=== PATIENT | male | born 1980 | race Caucasian/White ===

== ENCOUNTER 2017-10-30 11:12 | Emergency (ER) | payer OTHER, SELFPAY ==
[2017-10-30 12:07] VITALS: BP 115/66; PULSE 75
[2017-10-30 12:12] VITALS: O2SAT 97
[2017-10-30] MEDS ORDERED: TORAdol 30 mg Injection IM ONE (12:12)
--- NOTE | 2017-10-30 12:12 | ERPHSYRPT ---
- History of Present Illness Time Seen by Provider: 10/30/17 12:06 Source: patient Exam Limitations: no limitations Patient Subjective Stated Complaint: RIGHT FOOT PAIN SINCE LAST NIGHT. DENIES ANY INJURY Triage Nursing Assessment: RIGHT FOOT WARM TO TOUCH, NORMAL COLOR. GOOD PEDAL PULSE. GOOD CAP REFILL Physician History: The patient is a 37-year-old morbidly obese male complaining of right ankle pain after he came home from work last night. He has not taken any Tylenol or ibuprofen. He has not iced it. He denies any injury. He denies numbness or tingling. He denies swelling. His past medical history is significant only for morbid obesity. Method of Injury: unknown Occurred: yesterday Quality: constant, aching Severity of Pain-Max: mild Severity of Pain-Current: mild Lower Extremities Pain: ankle: right Modifying Factors: Improves With: nothing Associated Symptoms: none Allergies/Adverse Reactions: bee venom protein (honey bee) Allergy (Verified 10/30/17 11:36) Penicillins Allergy (Verified 10/30/17 11:36) Home Medications: No Reportable Medications [No Reported Medications] 10/30/17 [History] Hx Tetanus, Diphtheria Vaccination/Date Given: Yes Hx Influenza Vaccination/Date Given: Yes Hx Pneumococcal Vaccination/Date Given: Yes - Review of Systems Constitutional: No Fever, No Chills Eyes: No Symptoms Ears, Nose, & Throat: No Symptoms Respiratory: No Cough, No Dyspnea Cardiac: No Chest Pain, No Edema, No Syncope Abdominal/Gastrointestinal: No Abdominal Pain, No Nausea, No Vomiting, No Diarrhea Genitourinary Symptoms: No Dysuria Musculoskeletal: Joint Pain Skin: No Rash Neurological: No Dizziness, No Focal Weakness, No Sensory Changes Psychological: No Symptoms Endocrine: No Symptoms Hematologic/Lymphatic: No Symptoms Immunological/Allergic: No Symptoms All Other Systems: Reviewed and Negative - Past Medical History Pertinent Past Medical History: Yes Other Medical History: OBESITY - Past Surgical History Past Surgical History: No - Social History Smoking Status: Never smoker Exposure to second hand smoke: No Drug Use: none Patient Lives Alone: No - Nursing Vital Signs Nursing Vital Signs: Initial Vital Signs Temperature 98.4 F 10/30/17 11:26 Pulse Rate 76 10/30/17 11:26 Respiratory Rate 18 10/30/17 11:26 Blood Pressure 145/82 10/30/17 11:26 O2 Sat by Pulse Oximetry 97 10/30/17 11:26 Pain Scale Pain Intensity 8 - Physical Exam General Appearance: alert Eyes, Ears, Nose, Throat Exam: moist mucous membranes Neck Exam: non-tender, supple Cardiovascular/Respiratory Exam: chest non-tender, normal breath sounds, regular rate/rhythm, no respiratory distress Gastrointestinal/Abdominal Exam: non-tender, guarding Back Exam: normal inspection, No vertebral tenderness Hips Exam: bilateral: non-tender Legs Exam: bilateral leg: non-tender Knees Exam: bilateral knee: non-tender Ankle Exam: right ankle: soft tissue tenderness, left ankle: non-tender Foot Exam: bilateral foot: non-tender Neuro/Tendon Exam: normal sensation, normal motor functions Mental Status Exam: alert, oriented x 3, cooperative Skin Exam: normal color, warm, dry SpO2 Interpretation: normal SpO2: 97 Oxygen Delivery: Room Air - Radiology Exams Right Ankle X-ray Interpretation: Reviewed by me, Teleradiologist Report, Negative (per Dr Munoz) Ordered Tests: Active Orders 24 hr Category Date Time Status ANKLE (3 VIEWS) Stat Exams 10/30/17 12:13 Completed Medication Summary Discontinued Medications Generic Name Dose Route Start Last Admin Trade Name Braden PRN Reason Stop Dose Admin Ketorolac Tromethamine 60 mg 10/30/17 12:12 10/30/17 12:18 Toradol 30 Mg Injection IM 10/30/17 12:13 60 mg STAT ONE Administration Ketorolac Tromethamine Confirm 10/30/17 12:17 Toradol 30 Mg Injection Administered 10/30/17 12:18 Dose 60 mg .ROUTE .STK-MED ONE - Progress Progress: improved Counseled pt/family regarding: rad results - Departure Time of Disposition: 12:53 Departure Disposition: Home Clinical Impression: Right ankle pain Condition: Stable Critical Care Time: No Referrals: FERMÍN HENDRIX MD [Primary Care Provider] - Additional Instructions: You have right ankle pain. No broken bones were seen on the x-ray. You were given Toradol 60 mg IM in the ER. Take Tylenol 1000 mg and ibuprofen 800 mg every 8 hours as needed for pain. Follow-up next week if the condition persists.
[2017-10-30] MEDS ORDERED: TORAdol 30 mg Injection ONE (12:17)
--- NOTE | 2017-10-30 12:45 | XRAY ---
Exam: 3 view right ankle series from 10/30/2017. Comparison: None. Indication: No known injury, patient states he does a lot of walking, complains of pain along medial and lateral sides of right ankle, no history of prior fractures or surgery. Findings: AP, internal oblique, and lateral radiographs are submitted for evaluation. I see no acute fracture of either the distal right fibula or tibia. No anterior right ankle joint effusion is seen. There is some soft tissue prominence about the right ankle which might be due to the patient's body habitus. Correlate clinically. The right ankle mortise is well-preserved and appears uniform. No abnormal periarticular soft tissue calcifications are seen. A prominent os trigonum is seen posterior to the talus. There is a mild plantar right calcaneal spur present. The remainder of the right hindfoot appears unremarkable. The base of the right fifth metatarsal appears grossly intact. Impression: 1. No acute fracture or dislocation of the right ankle is seen. 2. The right ankle mortise is well-preserved and reveals smooth articular margins. It appears uniform. 3. There is some soft tissue prominence about both sides of the ankle. This might be due to the patient's body habitus. Correlate clinically.
== END 2017-10-30 13:07 | disposition home or self-care (01) ==
LOC: ED 11:12
DX: M25.571 Pain in right ankle and joints of right foot (principal)
CPT/HCPCS: 73610; 96372; 99284; J1885

== ENCOUNTER 2020-03-09 18:29 | Observation (INO) | payer OTHER ==
[2020-03-09] MEDS ORDERED: TYLENOL EXTRA STRENGTH 500 MG PO STA (18:36)
[2020-03-09] MEDS ORDERED: TYLENOL EXTRA STRENGTH 500 MG ONE (18:59)
[2020-03-09] MEDS ORDERED: Lactated Ringers 1,000 ML IV ONE (19:00)
[2020-03-09] MEDS ORDERED: Lactated Ringers 1,000 ML IV SCH (19:00)
[2020-03-09 19:18] LABS: Hematocrit 45.4 % (42-50); Hemoglobin 15.1 gm/dl (12.5-18.0); Mean Cell Volume 89.5 fl (78-100); Mean Corpuscular Hemoglobin 29.8 pg (26-32); Mean Corpuscular Hgb Concent. 33.3 g/dl (32-36); Mean Platelet Volume 10.7 fl (7.5-11.0); Platelet Count 231 K/mm3 (150-450); Red Blood Count 5.07 M/mm3 (4.1-5.6)
[2020-03-09 19:31] LABS: ALBUMIN 4.5 g/dL (3.5-5.0); ALKALINE PHOSPHATASE 69 U/L (38-126); ANION GAP 13.4 MEQ/L (5-15); BLOOD UREA NITROGEN 16 mg/dL (9-20); CHLORIDE 103 mmol/L (98-107); Calcium 9.4 mg/dL (8.4-10.2); Carbon Dioxide 25 mmol/L (22-30); Creatinine 1 0.92 mg/dL (0.66-1.25); Glucose 110 mg/dL (74-106); LDH-LACTATE DEHYDROGENASE 231 U/L (120-246); Potassium 3.9 mmol/L (3.5-5.1); SGOT/AST 27 U/L (17-59); SGPT/ALT 33 U/L (0-50); SODIUM 138 mmol/L (137-145); Total Protein 8.4 g/dL (6.3-8.2)
[2020-03-09 19:38] LABS: White Blood Count 28.9 K/mm3 (4.0-10.5)
[2020-03-09 19:53] LABS: INFLUENZA A NEGATIVE (NEGATIVE); INFLUENZA B NEGATIVE (NEGATIVE); RESPIRATORY SYNCTIAL VIRUS NEGATIVE (Negative)
--- NOTE | 2020-03-09 20:02 | ERPHSYRPT ---
- History of Present Illness Time Seen by Provider: 03/09/20 18:40 Source: patient Exam Limitations: no limitations Patient Subjective Stated Complaint: pt reports shortness of breath, fever, sweating, weakness and cough all starting suddenly this afternoon. 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 pt also reports lower extremity pain. pt states he has improving cellulitis to the bilat lower extremities. Triage Nursing Assessment: pt is aox3, pupils perrl, afebrile, pt is short of breath with minimal exertion, pt noted to be extremely diaphoretic, pt resps are unlabored, pt with decreased lung sounds, more so to the lower left lobe posteriorly. pt radial pulses strong and equal, pt tachycardic, cap refill < 3 s econds. pt noted to have mild swelling to bilat lower extremities with some redness as well. Physician History: Patient is a-year-old male who presents to our ED for evaluation of cough shortness of breath and fever. Patient states he has been sweating beyond what is expected for warm weather. 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 Patient states he has been feeling weak overall. No focal or lateralizing symptoms. Symptoms started today. Symptoms have been constant. No specific worsening or improving factors. No associated chest pain. No nausea or vomiting. Fevers are subjective. Patient also reports redness and swelling to both lower extremities. Otherwise healthy. He voices no other complaints at this time. Allergies/Adverse Reactions: bee venom protein (honey bee) Allergy (Verified 03/09/20 19:10) Swelling Penicillins Allergy (Verified 03/09/20 19:10) Hives Home Medications: No Reportable Medications [No Reported Medications] 10/30/17 [History] Hx Tetanus, Diphtheria Vaccination/Date Given: No Hx Influenza Vaccination/Date Given: Yes Hx Pneumococcal Vaccination/Date Given: No Immunizations Up to Date: Yes Travel Risk - International Travel Have you traveled outside of the country in past 3 weeks: No - Coronavirus Screening Close contact with a COVID-19 positive Pt in past 14-21 Days: No - Review of Systems Constitutional: No Symptoms, No Fever, No Chills Eyes: No Symptoms Ears, Nose, & Throat: No Symptoms Respiratory: No Symptoms, No Cough, No Dyspnea Cardiac: No Symptoms, No Chest Pain, No Edema, No Syncope Abdominal/Gastrointestinal: No Symptoms, No Abdominal Pain, No Nausea, No Vomiting, No Diarrhea Genitourinary Symptoms: No Symptoms, No Dysuria Musculoskeletal: No Symptoms, No Back Pain, No Neck Pain Skin: No Symptoms, No Rash Neurological: No Symptoms, No Dizziness, No Focal Weakness, No Sensory Changes Psychological: No Symptoms Endocrine: No Symptoms Hematologic/Lymphatic: No Symptoms Immunological/Allergic: No Symptoms All Other Systems: Reviewed and Negative - Past Medical History Pertinent Past Medical History: Yes Other Medical History: OBESITY. Cellulitis-BLE - Past Surgical History Past Surgical History: No - Social History Smoking Status: Never smoker Exposure to second hand smoke: No Drug Use: none Patient Lives Alone: No - Nursing Vital Signs Nursing Vital Signs: Initial Vital Signs Temperature 99.8 F 03/09/20 18:33 Pulse Rate 113 H 03/09/20 18:33 Respiratory Rate 24 03/09/20 18:33 Blood Pressure 135/72 03/09/20 18:33 O2 Sat by Pulse Oximetry 97 03/09/20 18:33 Pain Scale Pain Intensity 3 - Physical Exam General Appearance: mild distress, alert, other (Patient sitting up in bed. He is conversant. He appears mildly short of breath. He is diaphoretic. Patient is tachycardic.) Eye Exam: PERRL/EOMI ENT Exam: normal ENT inspection, No pharyngeal erythema, No tonsillar exudate Neck Exam: supple, full range of motion, No meningismus Respiratory Exam: lungs clear (Mildly increased respiratory rate. Diminished breath sounds bilaterally. No acute respiratory distress.), decreased air movement (Diminished breath sounds bilaterally somewhat more decreased at the left lower base.) Cardiovascular/Chest Exam: normal heart sounds, regular rate/rhythm, No murmur, No edema Gastrointestinal/Abdominal Exam: soft, non tender, no distention Extremity Exam: non-tender, normal range of motion, normal inspection, normal capillary refill, swelling (Cellulitis right lower extremity.) Neurologic Exam: alert, oriented x 3, cooperative, creative/art director II-XII nml as tested, normal mood/affect, sensation nml, No motor deficits Skin Exam: normal color, warm, dry, No rash SpO2 Interpretation: normal SpO2: 94 O2 Delivery: Room Air - Course Nursing assessment & vital signs reviewed: Yes EKG Interpreted by Me: RATE ([id number]), Sinus Tach, NORMAL AXIS, NORMAL INTERVALS - Radiology Ultrasound Exam Venous Lower Extremity Ultrasound: discussed w/radiologist (Per pipe supervisor no DVT right lower extremity.) Ordered Tests: Active Orders 24 hr Category Date Time Status Up With Assistance ROUTINE Activity 03/09/20 22:51 Active Code Status Order ROUTINE Care 03/09/20 22:51 Active EKG-ER Only STAT Care 03/09/20 18:36 Completed IV Care Q6H Care 03/09/20 22:51 Active IV Insertion STAT Care 03/09/20 18:36 Completed Isolation, Initiate & Maintain STAT Care 03/09/20 18:[address] in Observation ROUTINE Care 03/09/20 22:51 Active Vital Signs Q4H Care 03/09/20 22:51 Active Heart-Healthy Diet Diet 03/09/20 Breakfast Active CHEST 1 VIEW (PORTABLE) Stat Exams 03/09/20 18:37 Taken VENOUS UNILAT/LIMITED EXTREMIT [US] Stat Exams 03/09/20 21:11 Taken BLOOD CULTURE Stat Lab 03/09/20 18:50 Received CBC Stat Lab 03/09/20 18:50 Results CBC W DIFF AM.LAB Lab 03/10/20 04:00 Ordered CMP AM.LAB Lab 03/10/20 04:00 Ordered CMP Stat Lab 03/09/20 18:50 Completed LDH-LACTATE DEHYDROGENASE Stat Lab 03/09/20 18:50 Completed Lactic Acid Stat Lab 03/09/20 19:01 Completed Pathologist Review Stat Lab 03/09/20 18:50 Results TROPONIN Q3H Lab 03/09/20 18:45 Completed TROPONIN Q3H Lab 03/09/20 22:15 Completed TROPONIN Q3H Lab 03/10/20 00:45 Ordered TROPONIN Q3H Lab 03/10/20 03:45 Ordered TROPONIN Q3H Lab 03/10/20 06:45 Ordered UA W/RFX UR CULTURE Stat Lab 03/09/20 19:50 Completed Pulse Oximetry CONTINUOUS RT 03/09/20 22:51 Completed Transfer Order Routine Transfer 03/09/20 Completed Medication Summary Generic Name Dose Route Start Last Admin Trade Name Freq PRN Reason Stop Dose Admin Morphine Sulfate 2 mg 03/09/20 22:51 Morphine Sulfate 2 Mg Inj IV 03/14/20 22:50 Q4H PRN PRN PAIN Discontinued Medications Generic Name Dose Route Start Last Admin Trade Name Braden PRN Reason Stop Dose Admin Acetaminophen 1,000 mg 03/09/20 18:36 03/09/20 19:06 Tylenol Extra Strength 500 Mg PO 03/09/20 18:37 1,000 mg STAT STA Administration Acetaminophen Confirm 03/09/20 18:59 Tylenol Extra Strength 500 Mg Administered 03/09/20 19:00 Dose 1,000 mg .ROUTE .STK-MED ONE Lactated Ringer's 1,000 mls @ 50 mls/hr 03/09/20 19:00 03/09/20 19:06 Lactated Ringers IV 04/08/20 18:59 50 mls/hr .Q20H MONICA Administration Clindamycin HCl/Dextrose 900 mg in 50 mls @ 100 mls/hr 03/09/20 20:37 03/09/20 21:43 Clindamycin-D5w 900 Mg/50 Ml IV 03/09/20 21:06 Infused STAT STA Infusion Clindamycin HCl/Dextrose Confirm 03/09/20 21:01 Clindamycin-D5w 900 Mg/50 Ml Administered 03/09/20 21:02 Dose 900 mg in 50 mls @ ud IV .STK-MED ONE Vancomycin HCl Confirm 03/09/20 21:02 Vancomycin 1 Gram/200 Ml Bag Administered 03/09/20 21:03 Dose 1 gm in 200 mls @ ud IV .STK-MED ONE Vancomycin HCl 1 gm in 200 mls @ 125 mls/hr 03/09/20 21:09 03/09/20 21:36 Vancomycin 1 Gram/200 Ml Bag IV 03/09/20 22:44 125 mls/hr STAT ONE 125 mls/hr Administration Lactated Ringer's Confirm 03/09/20 19:00 Lactated Ringers Administered 03/09/20 19:01 Dose 1,000 mls @ ud IV .STK-MED ONE Lab/Rad Data: Laboratory Result Diagrams 03/09/20 18:50 03/09/20 18:50 Laboratory Results 03/09/20 03/09/20 03/09/20 Range/Units 22:15 19:50 19:01 WBC (4.0-10.5) K/mm3 RBC (4.1-5.6) M/mm3 Hgb (12.5-18.0) gm/dl Hct (42-50) % MCV (78-100) fl MCH (26-32) pg MCHC (32-36) g/dl RDW (11.5-14.0) % Plt Count (150-450) K/mm3 MPV (7.5-11.0) fl Smear Path Review Sodium (137-145) mmol/L Potassium (3.5-5.1) mmol/L Chloride (98-107) mmol/L Carbon Dioxide (22-30) mmol/L Anion Gap (5-15) MEQ/L BUN (9-20) mg/dL Creatinine (0.66-1.25) mg/dL Estimated GFR ML/MIN Glucose (74-106) mg/dL Lactic Acid 1.2 (0.4-2.0) Calcium (8.4-10.2) mg/dL Total Bilirubin (0.2-1.3) mg/dL AST (17-59) U/L ALT (0-50) U/L Alkaline Phosphatase (38-126) U/L Lactate Dehydrogenase (120-246) U/L Troponin I < 0.012 (0.000-0.034) ng/mL Serum Total Protein (6.3-8.2) g/dL Albumin (3.5-5.0) g/dL Urine Color MARIELLA (YELLOW) Urine Appearance SLIGHTLY CLOUDY (CLEAR) Urine pH 6.0 (5-6) Ur Specific [place] 1.030 (1.005-1.025) Urine Protein NEGATIVE (Negative) Urine Ketones NEGATIVE (NEGATIVE) Urine Blood MODERATE (0-5) Patrick/ul Urine Nitrite NEGATIVE (NEGATIVE) Urine Bilirubin NEGATIVE (NEGATIVE) Urine Urobilinogen 2 (0-1) mg/dL Ur Leukocyte Esterase NEGATIVE (NEGATIVE) Urine WBC (Auto) 0-2 (0-5) /HPF Urine RBC (Auto) 11-15 (0-2) /HPF U Epithel Cells (Auto) NONE (FEW) /HPF Urine Bacteria (Auto) FEW (NEGATIVE) /HPF Urine Mucus (Auto) SLIGHT (NEGATIVE) /HPF Urine Culture Reflexed NO (NO) Urine Glucose NEGATIVE (NEGATIVE) mg/dL Influenza Type A Ag (NEGATIVE) Influenza Type B Ag (NEGATIVE) RSV (PCR) (Negative) SARS-CoV-2 (PCR) (NEGATIVE) 03/09/20 03/09/20 03/09/20 Range/Units 19:00 18:50 18:50 WBC (4.0-10.5) K/mm3 RBC (4.1-5.6) M/mm3 Hgb (12.5-18.0) gm/dl Hct (42-50) % MCV (78-100) fl MCH (26-32) pg MCHC (32-36) g/dl RDW (11.5-14.0) % Plt Count (150-450) K/mm3 MPV (7.5-11.0) fl Smear Path Review Sodium 138 (137-145) mmol/L Potassium 3.9 (3.5-5.1) mmol/L Chloride 103 (98-107) mmol/L Carbon Dioxide 25 (22-30) mmol/L Anion Gap 13.4 (5-15) MEQ/L BUN 16 (9-20) mg/dL Creatinine 0.92 (0.66-1.25) mg/dL Estimated GFR > 60.0 ML/MIN Glucose 110 H (74-106) mg/dL Lactic Acid (0.4-2.0) Calcium 9.4 (8.4-10.2) mg/dL Total Bilirubin 1.80 H (0.2-1.3) mg/dL AST 27 (17-59) U/L ALT 33 (0-50) U/L Alkaline Phosphatase 69 (38-126) U/L Lactate Dehydrogenase 231 (120-246) U/L Troponin I (0.000-0.034) ng/mL Serum Total Protein 8.4 H (6.3-8.2) g/dL Albumin 4.5 (3.5-5.0) g/dL Urine Color (YELLOW) Urine Appearance (CLEAR) Urine pH (5-6) Ur Specific [place] (1.005-1.025) Urine Protein (Negative) Urine Ketones (NEGATIVE) Urine Blood (0-5) Patrick/ul Urine Nitrite (NEGATIVE) Urine Bilirubin (NEGATIVE) Urine Urobilinogen (0-1) mg/dL Ur Leukocyte Esterase (NEGATIVE) Urine WBC (Auto) (0-5) /HPF Urine RBC (Auto) (0-2) /HPF U Epithel Cells (Auto) (FEW) /HPF Urine Bacteria (Auto) (NEGATIVE) /HPF Urine Mucus (Auto) (NEGATIVE) /HPF Urine Culture Reflexed (NO) Urine Glucose (NEGATIVE) mg/dL Influenza Type A Ag NEGATIVE (NEGATIVE) Influenza Type B Ag NEGATIVE (NEGATIVE) RSV (PCR) NEGATIVE (Negative) SARS-CoV-2 (PCR) NEGATIVE (NEGATIVE) 03/09/20 03/09/20 Range/Units 18:50 18:45 WBC 28.9 H* (4.0-10.5) K/mm3 RBC 5.07 (4.1-5.6) M/mm3 Hgb 15.1 (12.5-18.0) gm/dl Hct 45.4 (42-50) % MCV 89.5 (78-100) fl MCH 29.8 (26-32) pg MCHC 33.3 (32-36) g/dl RDW 13.0 (11.5-14.0) % Plt Count 231 (150-450) K/mm3 MPV 10.7 (7.5-11.0) fl Smear Path Review Pending Sodium (137-145) mmol/L Potassium (3.5-5.1) mmol/L Chloride (98-107) mmol/L Carbon Dioxide (22-30) mmol/L Anion Gap (5-15) MEQ/L BUN (9-20) mg/dL Creatinine (0.66-1.25) mg/dL Estimated GFR ML/MIN Glucose (74-106) mg/dL Lactic Acid (0.4-2.0) Calcium (8.4-10.2) mg/dL Total Bilirubin (0.2-1.3) mg/dL AST (17-59) U/L ALT (0-50) U/L Alkaline Phosphatase (38-126) U/L Lactate Dehydrogenase (120-246) U/L Troponin I < 0.012 (0.000-0.034) ng/mL Serum Total Protein (6.3-8.2) g/dL Albumin (3.5-5.0) g/dL Urine Color (YELLOW) Urine Appearance (CLEAR) Urine pH (5-6) Ur Specific [place] (1.005-1.025) Urine Protein (Negative) Urine Ketones (NEGATIVE) Urine Blood (0-5) Patrick/ul Urine Nitrite (NEGATIVE) Urine Bilirubin (NEGATIVE) Urine Urobilinogen (0-1) mg/dL Ur Leukocyte Esterase (NEGATIVE) Urine WBC (Auto) (0-5) /HPF Urine RBC (Auto) (0-2) /HPF U Epithel Cells (Auto) (FEW) /HPF Urine Bacteria (Auto) (NEGATIVE) /HPF Urine Mucus (Auto) (NEGATIVE) /HPF Urine Culture Reflexed (NO) Urine Glucose (NEGATIVE) mg/dL Influenza Type A Ag (NEGATIVE) Influenza Type B Ag (NEGATIVE) RSV (PCR) (Negative) SARS-CoV-2 (PCR) (NEGATIVE) - Progress Progress: improved Progress Note: 03/09/20 23:20 Patient reassessed. He feels better. COVID negative. Leukocytosis likely secondary to right lower extremity cellulitis. venous duplex lower extremity ultrasound negative for DVT of right lower extremity. Antibiotics infused. Case discussed with Dr. Grayson who accepts admission to observation. Plan of care discussed with patient. He agrees admission to [facility] for further evaluation and treatment. Present for in stable condition. Discussed with Dr.: Luiza Will see patient in: hospital (observation) Counseled pt/family regarding: lab results, diagnosis, need for follow-up, rad results - Departure Departure Disposition: Release to OR/SDC Clinical Impression: Leukocytosis, Elevated bilirubin, Hematuria, Serum total bilirubin elevated, Cellulitis Condition: Stable Critical Care Time: Yes Critical Care Time(excluding separately billable procedures): Critical 75-104 mins
[2020-03-09 20:07] LABS: Appearance SLIGHTLY CLOUDY (CLEAR); Bacteria FEW /HPF (NEGATIVE); Bilirubin NEGATIVE (NEGATIVE); Blood MODERATE Ery/ul (0-5); Glucose NEGATIVE (NEGATIVE); Ketones NEGATIVE (NEGATIVE); Leukocyte Esterase NEGATIVE (NEGATIVE); Mucus SLIGHT /HPF (NEGATIVE); Nitrite NEGATIVE (NEGATIVE); Protein,Urine Dip NEGATIVE (Negative); Urobilinogen 2 mg/dL (0-1); WBC 0-2 /HPF (0-5)
[2020-03-09] MEDS ORDERED: CLINDAMYCIN-D5W 900 MG/50 ML*** 900 MG/50 ML BAG IV STA (20:37)
[2020-03-09] MEDS ORDERED: CLINDAMYCIN-D5W 900 MG/50 ML*** 900 MG/50 ML BAG IV ONE (21:01)
[2020-03-09] MEDS ORDERED: VANCOMYCIN 1 GRAM/200 ML BAG 1 GM/200 ML PIGGYBACK IV ONE ×2 (21:02→21:09)
[2020-03-09] MEDS ORDERED: MORPHINE SULFATE 2 MG INJ IV PRN (22:51)
[2020-03-10 05:17] LABS: Absolute Neutrophil Ct (ANC) 19.73 (1.4-6.9); BASOPHIL % 0.1 % (0.0-0.4); Basophil (Absolute #) 0.02 (0-0.4); Eosinophil (Absolute #) 0.01 (0-0.5); Hematocrit 42.4 % (42-50); Hemoglobin 13.9 gm/dl (12.5-18.0); Lymphocyte (Absolute #) 1.09 (1.0-4.6); Lymphocytes % 4.9 % (24.0-44.0); Mean Cell Volume 90.8 fl (78-100); Mean Corpuscular Hemoglobin 29.8 pg (26-32); Mean Corpuscular Hgb Concent. 32.8 g/dl (32-36); Mean Platelet Volume 10.6 fl (7.5-11.0); Monocytes % 5.4 % (0.0-12.0); Neutrophil % 89.6 % (36.0-66.0); Platelet Count 205 K/mm3 (150-450); Red Blood Count 4.67 M/mm3 (4.1-5.6); White Blood Count 22.1 K/mm3 (4.0-10.5)
[2020-03-10 05:40] LABS: ALBUMIN 3.6 g/dL (3.5-5.0); ALKALINE PHOSPHATASE 51 U/L (38-126); ANION GAP 9.8 MEQ/L (5-15); BLOOD UREA NITROGEN 15 mg/dL (9-20); CHLORIDE 103 mmol/L (98-107); Calcium 8.6 mg/dL (8.4-10.2); Carbon Dioxide 29 mmol/L (22-30); Creatinine 1 0.87 mg/dL (0.66-1.25); Glucose 105 mg/dL (74-106); Potassium 4.2 mmol/L (3.5-5.1); SGOT/AST 23 U/L (17-59); SGPT/ALT 30 U/L (0-50); SODIUM 138 mmol/L (137-145)
--- NOTE | 2020-03-10 08:06 | PCM.HP ---
History of Present Illness - Chief Complaint Chief Complaint: CELLULITIS, LEUKOCYTOSIS History of Present Illness: Mr.HART SIMONS is a 40 year old male who arrived with complaints of fever, chills and some dry cough, he was concerned he might have covid. he has had redness and pain in the right lower leg with some worsening in the last few days. no vomiting, no diarrhea, no other areas of pain. - Review of Systems Constitutional: Fever, Chills Respiratory: Cough, No Short Of Breath Cardiac: No Symptoms Abdominal/Gastrointestinal: No Abdominal Pain, No Nausea, No Vomiting, No Di arrhea Skin: Cellulitis All Other Systems: Reviewed and Negative Medications & Allergies Home Medications: Home Medication List No Reportable Medications [No Reported Medications] 10/30/17 [History Confirmed 03/09/20] Allergies/Adverse Reactions: Allergies Allergy/AdvReac Type Severity Reaction Status Date / Time bee venom protein (honey bee) Allergy Swelling Verified 03/09/20 19:10 Penicillins Allergy Hives Verified 03/09/20 19:10 - Past Medical History Past Medical History: Yes Comment: OBESITY. Cellulitis-BLE - Past Surgical History Past Surgical History: No - Social History Smoking Status: Never smoker Exposure to second hand smoke: No Alcohol: None Drug Use: none - Physical Exam Vital Signs: Vital Signs - 24 hr Temp Pulse Resp BP Pulse Ox 03/10/20 07:23 99.4 F 104 H 18 138/61 94 L 03/10/20 04:10 98.6 F 92 H 24 117/55 95 03/09/20 23:21 94 L 03/09/20 23:21 98.3 F 87 20 130/70 96 03/09/20 23:05 96 03/09/20 22:21 97 H 20 105/72 94 L 03/09/20 21:45 87 20 130/68 94 L 03/09/20 20:13 103 H 95/70 92 L 03/09/20 19:29 105 H 22 118/70 94 L 03/09/20 18:33 99.8 F 113 H 24 135/72 97 General Appearance: obese Neurologic Exam: alert, oriented x 3 Respiratory Exam: normal breath sounds, lungs clear, No respiratory distress Cardiovascular Exam: regular rate/rhythm, normal heart sounds, normal peripheral pulses Gastrointestinal/Abdomen Exam: soft, normal bowel sounds, No tenderness, No mass Skin Exam: other (erythema, warmth and swelling of right lower leg from foot to knee) Results - Labs Lab/Micro Results: Lab Results-Last 24 Hours 03/09/20 03/09/20 03/09/20 Range/Units 18:45 18:50 18:50 WBC 28.9 H* (4.0-10.5) K/mm3 RBC 5.07 (4.1-5.6) M/mm3 Hgb 15.1 (12.5-18.0) gm/dl Hct 45.4 (42-50) % MCV 89.5 (78-100) fl MCH 29.8 (26-32) pg MCHC 33.3 (32-36) g/dl RDW 13.0 (11.5-14.0) % Plt Count 231 (150-450) K/mm3 MPV 10.7 (7.5-11.0) fl Gran % (36.0-66.0) % Eos # (Auto) (0-0.5) Absolute Lymphs (auto) (1.0-4.6) Absolute Monos (auto) (0.0-1.3) Lymphocytes % (24.0-44.0) % Monocytes % (0.0-12.0) % Eosinophils % (0.00-5.0) % Basophils % (0.0-0.4) % Absolute Granulocytes (1.4-6.9) Basophils # (0-0.4) Smear Path Review Pending Sodium 138 (137-145) mmol/L Potassium 3.9 (3.5-5.1) mmol/L Chloride 103 (98-107) mmol/L Carbon Dioxide 25 (22-30) mmol/L Anion Gap 13.4 (5-15) MEQ/L BUN 16 (9-20) mg/dL Creatinine 0.92 (0.66-1.25) mg/dL Estimated GFR > 60.0 ML/MIN Glucose 110 H (74-106) mg/dL Lactic Acid (0.4-2.0) Calcium 9.4 (8.4-10.2) mg/dL Total Bilirubin 1.80 H (0.2-1.3) mg/dL AST 27 (17-59) U/L ALT 33 (0-50) U/L Alkaline Phosphatase 69 (38-126) U/L Lactate Dehydrogenase 231 (120-246) U/L Troponin I < 0.012 (0.000-0.034) ng/mL Serum Total Protein 8.4 H (6.3-8.2) g/dL Albumin 4.5 (3.5-5.0) g/dL Urine Color (YELLOW) Urine Appearance (CLEAR) Urine pH (5-6) Ur Specific [place] (1.005-1.025) Urine Protein (Negative) Urine Ketones (NEGATIVE) Urine Blood (0-5) Patrick/ul Urine Nitrite (NEGATIVE) Urine Bilirubin (NEGATIVE) Urine Urobilinogen (0-1) mg/dL Ur Leukocyte Esterase (NEGATIVE) Urine WBC (Auto) (0-5) /HPF Urine RBC (Auto) (0-2) /HPF U Epithel Cells (Auto) (FEW) /HPF Urine Bacteria (Auto) (NEGATIVE) /HPF Urine Mucus (Auto) (NEGATIVE) /HPF Urine Culture Reflexed (NO) Urine Glucose (NEGATIVE) mg/dL Influenza Type A Ag (NEGATIVE) Influenza Type B Ag (NEGATIVE) RSV (PCR) (Negative) SARS-CoV-2 (PCR) (NEGATIVE) 03/09/20 03/09/20 03/09/20 Range/Units 18:50 19:00 19:01 WBC (4.0-10.5) K/mm3 RBC (4.1-5.6) M/mm3 Hgb (12.5-18.0) gm/dl Hct (42-50) % MCV (78-100) fl MCH (26-32) pg MCHC (32-36) g/dl RDW (11.5-14.0) % Plt Count (150-450) K/mm3 MPV (7.5-11.0) fl Gran % (36.0-66.0) % Eos # (Auto) (0-0.5) Absolute Lymphs (auto) (1.0-4.6) Absolute Monos (auto) (0.0-1.3) Lymphocytes % (24.0-44.0) % Monocytes % (0.0-12.0) % Eosinophils % (0.00-5.0) % Basophils % (0.0-0.4) % Absolute Granulocytes (1.4-6.9) Basophils # (0-0.4) Smear Path Review Sodium (137-145) mmol/L Potassium (3.5-5.1) mmol/L Chloride (98-107) mmol/L Carbon Dioxide (22-30) mmol/L Anion Gap (5-15) MEQ/L BUN (9-20) mg/dL Creatinine (0.66-1.25) mg/dL Estimated GFR ML/MIN Glucose (74-106) mg/dL Lactic Acid 1.2 (0.4-2.0) Calcium (8.4-10.2) mg/dL Total Bilirubin (0.2-1.3) mg/dL AST (17-59) U/L ALT (0-50) U/L Alkaline Phosphatase (38-126) U/L Lactate Dehydrogenase (120-246) U/L Troponin I (0.000-0.034) ng/mL Serum Total Protein (6.3-8.2) g/dL Albumin (3.5-5.0) g/dL Urine Color (YELLOW) Urine Appearance (CLEAR) Urine pH (5-6) Ur Specific [place] (1.005-1.025) Urine Protein (Negative) Urine Ketones (NEGATIVE) Urine Blood (0-5) Patrick/ul Urine Nitrite (NEGATIVE) Urine Bilirubin (NEGATIVE) Urine Urobilinogen (0-1) mg/dL Ur Leukocyte Esterase (NEGATIVE) Urine WBC (Auto) (0-5) /HPF Urine RBC (Auto) (0-2) /HPF U Epithel Cells (Auto) (FEW) /HPF Urine Bacteria (Auto) (NEGATIVE) /HPF Urine Mucus (Auto) (NEGATIVE) /HPF Urine Culture Reflexed (NO) Urine Glucose (NEGATIVE) mg/dL Influenza Type A Ag NEGATIVE (NEGATIVE) Influenza Type B Ag NEGATIVE (NEGATIVE) RSV (PCR) NEGATIVE (Negative) SARS-CoV-2 (PCR) NEGATIVE (NEGATIVE) 03/09/20 03/09/20 03/10/20 Range/Units 19:50 22:15 00:45 WBC (4.0-10.5) K/mm3 RBC (4.1-5.6) M/mm3 Hgb (12.5-18.0) gm/dl Hct (42-50) % MCV (78-100) fl MCH (26-32) pg MCHC (32-36) g/dl RDW (11.5-14.0) % Plt Count (150-450) K/mm3 MPV (7.5-11.0) fl Gran % (36.0-66.0) % Eos # (Auto) (0-0.5) Absolute Lymphs (auto) (1.0-4.6) Absolute Monos (auto) (0.0-1.3) Lymphocytes % (24.0-44.0) % Monocytes % (0.0-12.0) % Eosinophils % (0.00-5.0) % Basophils % (0.0-0.4) % Absolute Granulocytes (1.4-6.9) Basophils # (0-0.4) Smear Path Review Sodium (137-145) mmol/L Potassium (3.5-5.1) mmol/L Chloride (98-107) mmol/L Carbon Dioxide (22-30) mmol/L Anion Gap (5-15) MEQ/L BUN (9-20) mg/dL Creatinine (0.66-1.25) mg/dL Estimated GFR ML/MIN Glucose (74-106) mg/dL Lactic Acid (0.4-2.0) Calcium (8.4-10.2) mg/dL Total Bilirubin (0.2-1.3) mg/dL AST (17-59) U/L ALT (0-50) U/L Alkaline Phosphatase (38-126) U/L Lactate Dehydrogenase (120-246) U/L Troponin I < 0.012 < 0.012 (0.000-0.034) ng/mL Serum Total Protein (6.3-8.2) g/dL Albumin (3.5-5.0) g/dL Urine Color MARIELLA (YELLOW) Urine Appearance SLIGHTLY CLOUDY (CLEAR) Urine pH 6.0 (5-6) Ur Specific [place] 1.030 (1.005-1.025) Urine Protein NEGATIVE (Negative) Urine Ketones NEGATIVE (NEGATIVE) Urine Blood MODERATE (0-5) Patrick/ul Urine Nitrite NEGATIVE (NEGATIVE) Urine Bilirubin NEGATIVE (NEGATIVE) Urine Urobilinogen 2 (0-1) mg/dL Ur Leukocyte Esterase NEGATIVE (NEGATIVE) Urine WBC (Auto) 0-2 (0-5) /HPF Urine RBC (Auto) 11-15 (0-2) /HPF U Epithel Cells (Auto) NONE (FEW) /HPF Urine Bacteria (Auto) FEW (NEGATIVE) /HPF Urine Mucus (Auto) SLIGHT (NEGATIVE) /HPF Urine Culture Reflexed NO (NO) Urine Glucose NEGATIVE (NEGATIVE) mg/dL Influenza Type A Ag (NEGATIVE) Influenza Type B Ag (NEGATIVE) RSV (PCR) (Negative) SARS-CoV-2 (PCR) (NEGATIVE) 03/10/20 03/10/20 03/10/20 Range/Units 04:45 04:45 04:45 WBC 22.1 H (4.0-10.5) K/mm3 RBC 4.67 (4.1-5.6) M/mm3 Hgb 13.9 (12.5-18.0) gm/dl Hct 42.4 (42-50) % MCV 90.8 (78-100) fl MCH 29.8 (26-32) pg MCHC 32.8 (32-36) g/dl RDW 13.0 (11.5-14.0) % Plt Count 205 (150-450) K/mm3 MPV 10.6 (7.5-11.0) fl Gran % 89.6 H (36.0-66.0) % Eos # (Auto) 0.01 (0-0.5) Absolute Lymphs (auto) 1.09 (1.0-4.6) Absolute Monos (auto) 1.20 (0.0-1.3) Lymphocytes % 4.9 L (24.0-44.0) % Monocytes % 5.4 (0.0-12.0) % Eosinophils % 0.0 (0.00-5.0) % Basophils % 0.1 (0.0-0.4) % Absolute Granulocytes 19.73 H (1.4-6.9) Basophils # 0.02 (0-0.4) Smear Path Review Sodium 138 (137-145) mmol/L Potassium 4.2 (3.5-5.1) mmol/L Chloride 103 (98-107) mmol/L Carbon Dioxide 29 (22-30) mmol/L Anion Gap 9.8 (5-15) MEQ/L BUN 15 (9-20) mg/dL Creatinine 0.87 (0.66-1.25) mg/dL Estimated GFR > 60.0 ML/MIN Glucose 105 (74-106) mg/dL Lactic Acid (0.4-2.0) Calcium 8.6 (8.4-10.2) mg/dL Total Bilirubin 1.50 H (0.2-1.3) mg/dL AST 23 (17-59) U/L ALT 30 (0-50) U/L Alkaline Phosphatase 51 (38-126) U/L Lactate Dehydrogenase (120-246) U/L Troponin I < 0.012 (0.000-0.034) ng/mL Serum Total Protein 7.0 (6.3-8.2) g/dL Albumin 3.6 (3.5-5.0) g/dL Urine Color (YELLOW) Urine Appearance (CLEAR) Urine pH (5-6) Ur Specific [place] (1.005-1.025) Urine Protein (Negative) Urine Ketones (NEGATIVE) Urine Blood (0-5) Patrick/ul Urine Nitrite (NEGATIVE) Urine Bilirubin (NEGATIVE) Urine Urobilinogen (0-1) mg/dL Ur Leukocyte Esterase (NEGATIVE) Urine WBC (Auto) (0-5) /HPF Urine RBC (Auto) (0-2) /HPF U Epithel Cells (Auto) (FEW) /HPF Urine Bacteria (Auto) (NEGATIVE) /HPF Urine Mucus (Auto) (NEGATIVE) /HPF Urine Culture Reflexed (NO) Urine Glucose (NEGATIVE) mg/dL Influenza Type A Ag (NEGATIVE) Influenza Type B Ag (NEGATIVE) RSV (PCR) (Negative) SARS-CoV-2 (PCR) (NEGATIVE) 03/10/20 Range/Units 06:40 WBC (4.0-10.5) K/mm3 RBC (4.1-5.6) M/mm3 Hgb (12.5-18.0) gm/dl Hct (42-50) % MCV (78-100) fl MCH (26-32) pg MCHC (32-36) g/dl RDW (11.5-14.0) % Plt Count (150-450) K/mm3 MPV (7.5-11.0) fl Gran % (36.0-66.0) % Eos # (Auto) (0-0.5) Absolute Lymphs (auto) (1.0-4.6) Absolute Monos (auto) (0.0-1.3) Lymphocytes % (24.0-44.0) % Monocytes % (0.0-12.0) % Eosinophils % (0.00-5.0) % Basophils % (0.0-0.4) % Absolute Granulocytes (1.4-6.9) Basophils # (0-0.4) Smear Path Review Sodium (137-145) mmol/L Potassium (3.5-5.1) mmol/L Chloride (98-107) mmol/L Carbon Dioxide (22-30) mmol/L Anion Gap (5-15) MEQ/L BUN (9-20) mg/dL Creatinine (0.66-1.25) mg/dL Estimated GFR ML/MIN Glucose (74-106) mg/dL Lactic Acid (0.4-2.0) Calcium (8.4-10.2) mg/dL Total Bilirubin (0.2-1.3) mg/dL AST (17-59) U/L ALT (0-50) U/L Alkaline Phosphatase (38-126) U/L Lactate Dehydrogenase (120-246) U/L Troponin I < 0.012 (0.000-0.034) ng/mL Serum Total Protein (6.3-8.2) g/dL Albumin (3.5-5.0) g/dL Urine Color (YELLOW) Urine Appearance (CLEAR) Urine pH (5-6) Ur Specific [place] (1.005-1.025) Urine Protein (Negative) Urine Ketones (NEGATIVE) Urine Blood (0-5) Patrick/ul Urine Nitrite (NEGATIVE) Urine Bilirubin (NEGATIVE) Urine Urobilinogen (0-1) mg/dL Ur Leukocyte Esterase (NEGATIVE) Urine WBC (Auto) (0-5) /HPF Urine RBC (Auto) (0-2) /HPF U Epithel Cells (Auto) (FEW) /HPF Urine Bacteria (Auto) (NEGATIVE) /HPF Urine Mucus (Auto) (NEGATIVE) /HPF Urine Culture Reflexed (NO) Urine Glucose (NEGATIVE) mg/dL Influenza Type A Ag (NEGATIVE) Influenza Type B Ag (NEGATIVE) RSV (PCR) (Negative) SARS-CoV-2 (PCR) (NEGATIVE) - Radiology Impressions Radiology Exams & Impressions: Radiology Procedures Category Date Time Status CHEST 1 VIEW (PORTABLE) Stat Exams 03/09/20 18:37 Taken VENOUS UNILAT/LIMITED EXTREMIT [US] Stat Exams 03/09/20 21:11 Taken Assessment/Plan (1) Morbid obesity Current Visit: Yes Status: Acute Code(s): E66.01 - MORBID (SEVERE) OBESITY DUE TO EXCESS CALORIES (2) Cellulitis Current Visit: Yes Status: Acute Code(s): L03.90 - CELLULITIS, UNSPECIFIED
[2020-03-10] MEDS ORDERED: VANCOCIN 1 GM VIAL*** 1 GM in Sodium Chloride 0.9% 250 ML 250 ML IV SCH (08:30)
--- NOTE | 2020-03-10 08:43 | XRAY ---
Indication: Fever, cough, and joint pain. Suspect Covid 19. Comparison: September 01, 2014. Portable chest again demonstrates normal heart, lungs, and bony thorax with incidental calcified granulomas.
--- NOTE | 2020-03-10 08:44 | XRAY ---
Indication: DVT. Two-dimensional sonogram and color Doppler imaging of the major venous vessels of the right leg was performed. Comparison: None No thrombus seen in the examined deep venous vessels of the right leg including greater saphenous vein. Veins demonstrate normal compressibility. Venous waveforms are normal with and without augmentation. Impression: Right leg negative for DVT. Comment: Preliminary report was given.
[2020-03-10] MEDS: NORCO 5/325 MG PO PRN ×2 (09:03→19:53)
[2020-03-10] MEDS: VANCOMYCIN 1.5 GRAM/300 ML BAG 1.5 GM/300 ML PIGGYBACK IV SCH ×2 (10:27→17:28)
[2020-03-10] MEDS: ENOXAPARIN SODIUM SQ SCH (10:27)
[2020-03-10] MEDS: BENADRYL 25 MG CAPSULE PO PRN (21:41)
[2020-03-11] MEDS: VANCOMYCIN 1.5 GRAM/300 ML BAG 1.5 GM/300 ML PIGGYBACK IV SCH ×3 (02:04→17:50)
[2020-03-11] MEDS: BENADRYL 25 MG CAPSULE PO PRN ×2 (03:58→09:26)
[2020-03-11 06:14] LABS: Absolute Neutrophil Ct (ANC) 7.83 (1.4-6.9); BASOPHIL % 0.1 % (0.0-0.4); Basophil (Absolute #) 0.01 (0-0.4); Eosinophil % 2.2 % (0.00-5.0); Eosinophil (Absolute #) 0.22 (0-0.5); Hematocrit 41.4 % (42-50); Hemoglobin 13.5 gm/dl (12.5-18.0); Lymphocyte (Absolute #) 1.28 (1.0-4.6); Mean Cell Volume 91.2 fl (78-100); Mean Corpuscular Hemoglobin 29.7 pg (26-32); Mean Corpuscular Hgb Concent. 32.6 g/dl (32-36); Mean Platelet Volume 10.7 fl (7.5-11.0); Monocyte (Absolute #) 0.47 (0.0-1.3); Monocytes % 4.8 % (0.0-12.0); Neutrophil % 79.9 % (36.0-66.0); Platelet Count 198 K/mm3 (150-450); Red Blood Count 4.54 M/mm3 (4.1-5.6); Red Cell Distribution Width 13.2 % (11.5-14.0); White Blood Count 9.8 K/mm3 (4.0-10.5)
[2020-03-11 06:47] LABS: ANION GAP 9.3 MEQ/L (5-15); BLOOD UREA NITROGEN 13 mg/dL (9-20); CHLORIDE 106 mmol/L (98-107); Calcium 8.1 mg/dL (8.4-10.2); Carbon Dioxide 25 mmol/L (22-30); Creatinine 1 0.78 mg/dL (0.66-1.25); Glucose 90 mg/dL (74-106); SODIUM 136 mmol/L (137-145)
[2020-03-11] MEDS: ENOXAPARIN SODIUM SQ SCH (09:21)
--- NOTE | 2020-03-11 12:19 | PCM.NOTE ---
Date and Time: 03/11/20 1213 Subjective Assessment: Pt is kleber po well. Leg not hurting unless he touches it or is up on it. Kleber po well. Leg feels better than at admission. - Review of Systems Constitutional: No Fever Skin: Cellulitis Objective Exam General Appearance: no apparent distress, obese Neurologic Exam: alert, oriented x 3 Skin Exam: other (RLE erythematous particularly anteriorly. There is some vesicular appearance to the anterior portion. Quite TTP. Trace pitting edema.) OBJECTIVE DATA Vital Signs: Vital Signs - 24 hr Temp Pulse Resp BP Pulse Ox 03/11/20 07:25 98.4 F 84 16 125/69 96 03/11/20 04:00 98.7 F 86 16 111/59 03/11/20 00:00 97.6 F 87 16 128/65 97 03/10/20 20:00 97.3 F 88 18 127/63 98 03/10/20 16:00 97.9 F 86 16 123/69 96 Pain Assessment - Last Documented Pain Intensity 2 Pain Scale Used [facility] Intake and Output: Intake & Output 03/09/20 03/10/20 03/11/20 03/12/20 11:59 11:59 11:59 11:59 Intake Total 938 2434 Output Total 800 1200 Balance 138 1234 Weight 163.3 kg Lab Results: Lab Results-Last 24 Hours 03/11/20 03/11/20 Range/Units 05:35 05:35 WBC 9.8 (4.0-10.5) K/mm3 RBC 4.54 (4.1-5.6) M/mm3 Hgb 13.5 (12.5-18.0) gm/dl Hct 41.4 L (42-50) % MCV 91.2 (78-100) fl MCH 29.7 (26-32) pg MCHC 32.6 (32-36) g/dl RDW 13.2 (11.5-14.0) % Plt Count 198 (150-450) K/mm3 MPV 10.7 (7.5-11.0) fl Gran % 79.9 H (36.0-66.0) % Eos # (Auto) 0.22 (0-0.5) Absolute Lymphs (auto) 1.28 (1.0-4.6) Absolute Monos (auto) 0.47 (0.0-1.3) Lymphocytes % 13.0 L (24.0-44.0) % Monocytes % 4.8 (0.0-12.0) % Eosinophils % 2.2 (0.00-5.0) % Basophils % 0.1 (0.0-0.4) % Absolute Granulocytes 7.83 H (1.4-6.9) Basophils # 0.01 (0-0.4) Sodium 136 L (137-145) mmol/L Potassium 4.0 (3.5-5.1) mmol/L Chloride 106 (98-107) mmol/L Carbon Dioxide 25 (22-30) mmol/L Anion Gap 9.3 (5-15) MEQ/L BUN 13 (9-20) mg/dL Creatinine 0.78 (0.66-1.25) mg/dL Estimated GFR > 60.0 ML/MIN Glucose 90 (74-106) mg/dL Calcium 8.1 L (8.4-10.2) mg/dL Radiology Exams: Radiology Procedures Category Date Time Status CHEST 1 VIEW (PORTABLE) Stat Exams 03/09/20 18:37 Completed VENOUS UNILAT/LIMITED EXTREMIT [US] Stat Exams 03/09/20 21:11 Completed Assessment/Plan (1) Cellulitis Current Visit: Yes Status: Acute Qualifiers: Site of cellulitis: extremity Site of cellulitis of extremity: lower extremity Laterality: right Qualified Code(s): L03.115 - Cellulitis of right lower limb Assessment & Plan: Improving; however on admission his WBC were 28.9, so will ensure blood culture is negative/susceptible to vancomycin prior to discharge to home. Pt is agreeable; he had hoped to d/c to home tomorrow. On Vancomycin day #3. Code(s): L03.90 - CELLULITIS, UNSPECIFIED (2) Hematuria Current Visit: Yes Status: Acute Qualifiers: Hematuria type: benign essential microscopic Qualified Code(s): R31.1 - Benign essential microscopic hematuria Assessment & Plan: would recheck UA in 1 mo. Code(s): R31.9 - HEMATURIA, UNSPECIFIED (3) Morbid obesity Current Visit: Yes Status: Chronic Code(s): E66.01 - MORBID (SEVERE) OBESITY DUE TO EXCESS CALORIES (4) DVT prophylaxis Current Visit: Yes Status: Acute Assessment & Plan: On lovenox. Code(s): Z29.9 - ENCOUNTER FOR PROPHYLACTIC MEASURES, UNSPECIFIED
[2020-03-12] MEDS: VANCOMYCIN 1.5 GRAM/300 ML BAG 1.5 GM/300 ML PIGGYBACK IV SCH ×2 (01:10→10:32)
[2020-03-12] MEDS: NORCO 5/325 MG PO PRN (01:14)
[2020-03-12 08:17] VITALS: O2SAT 99
[2020-03-12] MEDS ORDERED: TROUGH DRUG LEVELS IJ ONE (09:30)
[2020-03-12] MEDS: ENOXAPARIN SODIUM SQ SCH (10:31)
[2020-03-12 12:27] VITALS: BP 129/73; PULSE 73
--- NOTE | 2020-03-12 14:00 | PCM.DS ---
Discharge Summary Date of Admission: 03/09/20 22:51 Admitting Physician: JANETH CASTELLANOS Primary Care Provider: JANETH CASTELLANOS Allergies Allergies bee venom protein (honey bee) Allergy (Verified 03/09/20 19:10) Swelling Penicillins Allergy (Verified 03/09/20 19:10) [facility] Summary - Hospital Course Hospital Course: Pt is 40 yo male with morbid obesity who came in through ER with cellulitis of the RLE. WBC count was 28.9. He was started on IV vancomycin; today is day #4 and he is doing much better. Afebrile. TOlerating po well. Will discharge to home today on po antibiotics; would have him f/u with PCP in office in 2-3 days in order to track his progress closely. - Vitals & Intake/Output Vital Signs: Vital Signs Temperature 97.3 F 03/12/20 12:00 Pulse Rate 73 03/12/20 12:00 Respiratory Rate 18 03/12/20 12:00 Blood Pressure 129/73 03/12/20 12:00 O2 Sat by Pulse Oximetry 99 03/12/20 12:00 Intake & Output: Intake & Output 03/10/20 03/11/20 03/12/20 03/13/20 11:59 11:59 11:59 11:59 Intake Total 938 2434 3133 Output Total 800 1200 Balance 138 1234 3133 Weight 163.3 kg - Lab Result Diagrams: 03/11/20 05:35 03/11/20 05:35 Lab Results-Last 24 Hrs: Lab Results-Last 24 Hours 03/09/20 03/12/20 Range/Units 18:50 09:43 C-Reactive Prot, Quant 29.64 H (0.00-10.00) mg/L Vancomycin Trough 12.00 (10-20) ug/mL Micro Results-Entire Visit: Microbiology 03/09/20 18:50 Blood Culture - Preliminary Blood NO GROWTH TO DATE Discharge Exam General Appearance: no apparent distress, alert Neurologic Exam: oriented x 3, cooperative Eye Exam: eyes nml inspection Ears, Nose, Throat Exam: moist mucous membranes Neck Exam: normal inspection Respiratory Exam: normal breath sounds, lungs clear, No crackles/rales, No rhonchi, No wheezing Cardiovascular Exam: regular rate/rhythm, normal heart sounds, No murmur Gastrointestinal/Abdomen Exam: soft, normal bowel sounds, No tenderness, No guarding, No rebound Extremity Exam: other (RLE very mild erythema anteriorly, slight vesicular appearance.) Skin Exam: warm, dry Final Diagnosis/Problem List - Final Discharge Diagnosis/Problem (1) Cellulitis Current Visit: Yes Status: Acute Assessment & Plan: Much improved. Day #4 of vancomycin today. Home on po clindamycin. F/u in 2-3 d in office with PCP. Home on #15 norco 5/325 - INSPECT appropriate today. Code(s): L03.90 - CELLULITIS, UNSPECIFIED (2) Hematuria Current Visit: Yes Status: Acute Assessment & Plan: Should have UA rechecked in 2-4 weeks. Code(s): R31.9 - HEMATURIA, UNSPECIFIED (3) Morbid obesity Current Visit: Yes Status: Chronic Code(s): E66.01 - MORBID (SEVERE) OBESITY DUE TO EXCESS CALORIES (4) DVT prophylaxis Current Visit: Yes Status: Acute Code(s): Z29.9 - ENCOUNTER FOR PROPHYLACTIC MEASURES, UNSPECIFIED - Discharge Disposition: Home, Self-Care Condition: Good Prescriptions: New Clindamycin HCl 300 mg PO QID #28 capsule Hydrocodone/APAP 5-325 Tab^^^ [[place] 5-325 Tablet^^^] 1 tab PO Q6HPRN PRN #15 tablet MDD 6 PRN Reason: Pain Additional Instructions: Call immediately or return to ER for increased pain or redness, any worsening of the leg, temperature over 100, vomiting, or any other worrisome symptoms. Follow up with: JANETH CASTELLANOS MD [Primary Care Provider] - 1 Week
== END 2020-03-12 15:10 | disposition home or self-care (01) ==
LOC: ED 18:29 → MED SURG 22:51
PROVIDERS: ADMIT Family Medicine; ATTEND Family Medicine
DX: L03.115 Cellulitis of right lower limb (principal); R31.9 Hematuria, unspecified; D72.829 Elevated white blood cell count, unspecified; E66.01 Morbid (severe) obesity due to excess calories; Z79.899 Other long term (current) drug therapy
CPT/HCPCS: 36415; 80048; 80053; 80202; 81001; 83605; 83615; 84484; 85025; 85027; 86140; 87040; 87631; 93005; 93971; 94760; 96365; 96367; 99291; 99292; G0378; U0003; 36000; 71045; 99285; J1650; J2270; A9270-GY; J3370